=== PATIENT | male | born 1945 | race Two or more races ===

== ENCOUNTER → 2024-04-24 | Outpatient (CLI) | payer MEDICARE, SELFPAY ==
--- NOTE | 2024-04-24 13:20 | XR_ITS ---
Examination: Bone densitometry Date and time of exam:April 24, 2024 1336 hours INDICATIONS: Family history, mother, osteoporosis, 79-year-old male with diagnosis age related osteoporosis Technique: Lumbar spine and hip total bone mineralization values of an calculated. Peak reference and age match control results have been displayed. Findings: Lumbar spine total bone mineralization is1.493 gm/cm2. This is 3.7 standard deviations above peak reference. This is 4.7 standard deviations above age-matched controls. Hip total bone mineralization is 1.125 gm/cm2 This is 0.5 standard deviations above peak reference. This is 1.4 standard deviations above age-matched controls Impression: There is normal mineralization based on lumbar spine measurements. There is normal mineralization based on hip measurements Lumbar mineralization is increase 9.7% compared with April 22, 2018 Hip mineralization is increased 2.4% compared with April 22, 2018
== END | disposition home or self-care (01) ==
LOC: CDIM 13:12
PROVIDERS: PCP Family Medicine; Referring Provider Family Medicine; Visit Provider Family Medicine
DX: M81.0 Age-related osteoporosis without current pathological fracture (principal)
CPT/HCPCS: 77080

== ENCOUNTER 2024-12-18 07:20 | Day surgery (SDC) | payer MEDICARE, SELFPAY ==
--- NOTE | 2024-12-15 05:00 | EKG_ITS ---
[facility] Test Date: 2024-12-15 Pat Name: CAROL ANN MCDONALD Department: Room: - Gender: Male Recruiting And Selection Consultant: [place] : [id number] Requested By: Bentley Obrien Order Number: [id number] Reading MD: Bentley Obrien Measurements Intervals [place] Rate: 66 P: [place]: QRS: -17 QRSD: 108 T: 50 QT: 416 QTc: 436 Interpretive Statements ATRIAL FIBRILLATION ABNORMAL RHYTHM ECG No previous ECG available for comparison /[id number]/[id number]
[2024-12-15 13:00] LABS: INR 1.0 (0.9-1.3); Partial Thromboplastin Time 28.4 Seconds (22.0-36.0); Prothrombin Time 10.9 Seconds (9.0-12.2)
[2024-12-15 13:03] LABS: Alanine Aminotransferase 19 U/L (10-49); Albumin, Serum 3.9 gm/dL (3.4-4.8); Albumin/Globulin Ratio 1.7 (1.2-2.2); Alkaline Phosphatase 74 U/L (46-116); Anion Gap 8 (7-16); Aspartate Amino Transferase 34 U/L (0-34); BUN/Creatinine Ratio 24 Ratio (12-20); Bilirubin,Total 0.8 mg/dL (0.3-1.2); Blood Urea Nitrogen 22 mg/dL (9-23); Calcium 9.0 mg/dL (8.3-10.6); Calcium (Corrected) 9.1 mg/dL (8.5-10.1); Carbon Dioxide 28.8 mMol/L (20.0-31.0); Chloride 106 mMol/L (98-107); Creatinine (Component) 0.9 mg/dL (0.6-1.3); Globulin 2.3 gm/dL (2.3-3.5); Glucose 96 mg/dL (74-106); Osmolality,Calculated 288 (275-295); Potassium 4.3 mMol/L (3.4-5.1); Sodium 143 mMol/L (136-145); Total Protein 6.2 gm/dL (5.7-8.2); eGFR > 60 See Note
--- NOTE | 2024-12-15 15:38 | SUR.PREOP ---
Spoke to regarding patient EKG and he is ok to proceed with procedure wednesday.
[2024-12-18 07:58] VITALS: BP 149/80; PULSE 75; RESP 21; TEMP 36.7; O2SAT 95; BMI 25.7
[2024-12-18] MEDS: RINGERS LACTATED 1000 ML 1,000 ML 20 ML IV (09:07)
[2024-12-18 09:28] VITALS: BP 120/68; PULSE 74; RESP 21; TEMP 36.9; O2SAT 90
[2024-12-18 09:38] VITALS: BP 115/68; PULSE 68; RESP 19; O2SAT 93
[2024-12-18 09:48] VITALS: BP 117/80; PULSE 71; RESP 20; O2SAT 95
[2024-12-18 09:58] VITALS: BP 134/72; PULSE 69; RESP 12; O2SAT 95
== END 2024-12-18 10:15 | disposition home or self-care (01) ==
PROVIDERS: Anesthesiology; PCP Family Medicine; Referring Provider Specialist; Visit Provider Specialist
PROC: 0DJD8ZZ Inspection of Lower Intestinal Tract, Via Natural or Artificial Opening Endoscopic (ICD-10-PCS; CPT 45378; principal; 2024-12-18 08:30)
DX: K64.1 Second degree hemorrhoids (principal); K57.31 Diverticulosis of large intestine without perforation or abscess with bleeding; E78.5 Hyperlipidemia, unspecified; Z79.899 Other long term (current) drug therapy
CPT/HCPCS: 45378; 36415; 80053; 85610; 85730; 93005; A4649; J7120

== ENCOUNTER → 2025-01-30 | Outpatient (CLI) | payer MEDICARE, SELFPAY ==
--- NOTE | 2025-01-30 10:45 | XR_ITS ---
EXAMINATION: Ultrasound abdominal aorta TECHNIQUE: Grayscale sonographic images of abdominal aorta Date and time: January 30, 2025, 10:54 a.m., comparison May 12, 2023 INDICATIONS: History enlarged abdominal aorta beginning 5 years ago, ultrasound aorta May 12, 2023 transverse dimension proximal aorta 3.9 cm distal aorta 3.0 cm FINDINGS: Transverse dimension proximal aorta 3.6 cm mid aorta 3.2 cm distal aorta 3.0 cm right iliac 1.3 cm left iliac 1.4 cm IMPRESSION: Aneurysmal dilatation abdominal aorta as above
== END | disposition home or self-care (01) ==
PROVIDERS: PCP Family Medicine; Referring Provider Family Medicine; Visit Provider Family Medicine
DX: I71.40 Abdominal aortic aneurysm, without rupture, unspecified (principal)
CPT/HCPCS: 76770